=== PATIENT | female | born 1975 | race Caucasian/White ===

== ENCOUNTER → 2016-03-26 | Outpatient (REF) | payer OTHER | LOC: M SFHCLERA 11:00 | PROVIDERS: ATTEND Physician Assistant | DX: J02.9 Acute pharyngitis, unspecified (principal) ==

== ENCOUNTER → 2016-12-21 | Outpatient (REF) | payer BC | LOC: M SFHCLERA 16:28 | PROVIDERS: ATTEND Nurse Practitioner Family | DX: R53.81 Other malaise (principal) ==

== ENCOUNTER → 2021-09-21 | Outpatient (REF) | LOC: M LABSMTC 09:37 | PROVIDERS: ATTEND Family Medicine | DX: Z20.822 Contact with and (suspected) exposure to COVID-19 (principal) ==

== ENCOUNTER → 2021-11-22 | Outpatient (REF) | LOC: M LABSMTC 09:11 | PROVIDERS: ATTEND Family Medicine | DX: Z20.822 Contact with and (suspected) exposure to COVID-19 (principal) ==

== ENCOUNTER → 2022-03-15 | Outpatient (REF) ==
[2022-03-15 13:37] LABS: RSV AMPLIFICATION NEGATIVE (NEGATIVE)
== END ==
LOC: M LABSMTC 11:10
PROVIDERS: ATTEND Family Medicine
DX: Z11.59 Encounter for screening for other viral diseases (principal)